=== PATIENT | male | born 1955 | race Caucasian/White ===

== ENCOUNTER → 2016-06-23 | Outpatient (CLI) | payer MEDICARE, OTHER ==
[~2016-06-23] MED LIST: ELIQUIS2.5 MG PO; FISH OIL 1,0001 EACH PO; PERCOCET 5-3251 EACH PO; TRAMADOL HCL50 MG PO; ZANTAC 150 MG150 MG PO
== END ==
LOC: KOH-I 11:00
DX: M25.561 Pain in right knee (principal); M25.562 Pain in left knee
CPT/HCPCS: 73564

== ENCOUNTER → 2016-07-08 | Outpatient (CLI) | payer MEDICARE, OTHER | LOC: EMI 14:40 | DX: M25.561 Pain in right knee (principal); M25.562 Pain in left knee; S83.242A Other tear of medial meniscus, current injury, left knee, initial encounter; M17.12 Unilateral primary osteoarthritis, left knee; M94.262 Chondromalacia, left knee; M17.5 Other unilateral secondary osteoarthritis of knee | CPT/HCPCS: 73721 ==

== ENCOUNTER → 2016-09-21 | Outpatient (CLI) | payer MEDICARE, OTHER ==
[2016-09-21 08:49] LABS: HEMOGLOBIN 15.9 gm/dl (14.0-17.5); RED BLOOD COUNT 5.25 M/UL (4.20-5.50); WHITE BLOOD COUNT 6.8 K/UL (4.5-11.0)
[2016-09-21 09:06] LABS: BUN/CREATININE RATIO 13 (0-10)
== END ==
LOC: OPSV2 08:00 → EDSTATUS 08:00 → OPSV2 08:05
PROVIDERS: Orthopaedic Surgery
DX: Z01.810 Encounter for preprocedural cardiovascular examination (principal); Z01.812 Encounter for preprocedural laboratory examination; M17.12 Unilateral primary osteoarthritis, left knee
CPT/HCPCS: 36415; 80048; 81001; 85025; 87081; 93005

== ENCOUNTER 2020-09-11 16:09 | Emergency (ER) | payer MEDICARE, OTHER ==
[2020-09-11 16:44] LABS: HEMOGLOBIN 15.9 gm/dl (14.0-17.5); RED BLOOD COUNT 5.01 M/UL (4.20-5.50); WHITE BLOOD COUNT 11.9 K/UL (4.5-11.0)
[2020-09-11 17:04] LABS: BUN/CREATININE RATIO 22 (0-10)
[2020-09-11] MEDS ORDERED: VIRTUSSIN AC 1118 ML PO (21:44)
[2020-09-11] MEDS ORDERED: VENTOLIN HFA 66.7 GM INH (21:48)
== END 2020-09-11 22:10 | disposition home or self-care (01) ==
LOC: ER1 16:09
PROVIDERS: Emergency Medicine
DX: J20.9 Acute bronchitis, unspecified (principal); R55 Syncope and collapse; J44.9 Chronic obstructive pulmonary disease, unspecified
CPT/HCPCS: 36600; 80053; 82550; 82553; 82803; 83874; 83880; 84484; 85025; 93005; 96374; 96375; 99285; J2270; J2405; Q9967